=== PATIENT | female | born 1965 | race Caucasian/White ===

== ENCOUNTER 2019-11-23 09:38 | Outpatient (CLI) | payer BC, SELFPAY ==
--- NOTE | 2019-11-23 10:00 | XR_ITS ---
WS: [id number] HIP WITH PELVIS RIGHT TECHNIQUE: 3 views of the right hip with pelvis CLINICAL INFORMATION: DEGENERATIVE JOINT DISEASE COMPARISON: July 01, 2016 FINDINGS: Dysplastic right hip with advanced degenerative changes. 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 Loss of joint space and [id number] articulation superolate ral joint compartment. Marginal osteophytes. Proximal femoral shaft appears normal. No acute fracture s. XR/XR hip RT 2-3V wo/w pel* [id number] IMPRESSION: Right hip dysplasia with advanced degenerative narrowing.
== END 2019-11-23 09:39 | disposition home or self-care (01) ==
LOC: RADWPI 09:42
PROVIDERS: Family Provider Family Medicine; PCP Electrodiagnostic Medicine; Visit Provider Electrodiagnostic Medicine
DX: M16.11 Unilateral primary osteoarthritis, right hip (principal); Q65.89 Other specified congenital deformities of hip
CPT/HCPCS: 73502

== ENCOUNTER 2020-07-31 05:14 | Emergency (ER) | payer BC, SELFPAY ==
[2020-07-31 05:15] VITALS: BP 189/87; PULSE 88; RESP 16; TEMP 36.6; O2SAT 100; BMI 24.3
--- NOTE | 2020-07-31 05:19 | CTR_ITS ---
PROCEDURE INFORMATION: Exam: CT Head Without Contrast Exam date and time: 07/31/2020 5:23 AM Age: 54 years old Clinical indication: Other: Tingling all over; Additional info: Paresthesia TECHNIQUE: Imaging protocol: Computed tomography of the head without contrast. Radiation optimization: All CT scans at this facility use at least one of these dose optimization techniques: automated exposure control; mA and/or kV adjustment per patient size (includes targeted exams where dose is matched to clinical indication); or iterative reconstruction. COMPARISON: No relevant prior studies available. RADIATION DOSE METRICS: Total DLP (mGy-cm): 774.18 FINDINGS: Brain: Oblique orientation of the flat focus of CSF density measuring about 3 x 6 mm along the posteroinferior margin of the right basal ganglia suggesting a possible incidental small arachnoid cyst in the choroidal fissure. No edema in the brain. Unremarkable white matter. No hemorrhage. Cerebral ventricles: No ventriculomegaly. Bones/joints: Unremarkable. No acute fracture. Paranasal sinuses: Visualized sinuses unremarkable. No fluid levels. Mastoid air cells: Visualized mastoid air cells unremarkable. Soft tissues: Unremarkable. CT/CT head wo con* [id number] IMPRESSION: No acute finding. Radiation Dose CTDIVOL = (mGy): DLP = 774.18 (mGy-cm)
--- NOTE | 2020-07-31 05:19 | XRR_ITS ---
PROCEDURE INFORMATION: Exam: XR Chest, 1 View Exam date and time: 07/31/2020 5:38 AM Age: 54 years old Clinical indication: Chest pain; Type not specified; Additional info: Cp, tingling all over TECHNIQUE: Imaging protocol: XR of the chest Views: 1 view. COMPARISON: No relevant prior studies available. FINDINGS: Lungs: Unremarkable. No consolidation. Pleural space: Unremarkable. No pleural effusion. No pneumothorax. Heart/Mediastinum: Unremarkable. No cardiomegaly. Bones/joints: Unremarkable. XR/XR chest 1V portable [id number] IMPRESSION: No acute findings.
--- NOTE | 2020-07-31 05:32 | ED_ITS ---
HPI - Neuro Symptoms/Deficit General: Chief Complaint: Neuro Symptoms/Deficit Stated Complaint: tingling all over Time Seen by Provider: 07/31/20 05:19 History of Present Illness: HPI Narrative: 54 yo female presents to the ER with complaints of numbness and tingling in the R leg. She thought she was having a panic attack and tool a xanax with no change in symptoms. She has not had any slurred speech or facial droop and R leg extremity weakness. She denies any chest pain. She had no cough, fever sweats, chills, or flu like symptoms. No diarrhea. She denies any headache or any other neurosymtpoms. Onset (ago): minute(s) Time: 05:15 Last Observed Normal: 04:55 Location: left leg History of same: No Severity: mild Quality: tingling Relieving factors: none Exacerbating factors: none Context: sudden onset Associated symptoms: Deny chest pain, cough, diaphoresis, fevers/chills, headache(s), anorexia, malaise, nausea, seizures, short of breath, syncope, tingling, vertigo, vomiting or weakness Treatments Prior to Arrival: none Review of Systems Const: Denies: malaise or diaphoresis ENMT: Denies: throat pain, ear or mastoid pain, nasal discharge or nasal congestion Card: Denies: chest pain or syncope Resp: Denies: dyspnea, productive cough or non-productive cough GI: Denies: nausea or vomiting : Denies: flank pain, difficulty voiding, dysuria, urinary frequency or urinary urgency Skin/Breast: Denies: rash or pruritus Neuro: Denies: headache(s) or vertigo [facility] ED PFSH: Medical History (Updated 07/31/20 @ 06:28 by Frank Barker DO) Anxiety NIH stroke score NIHSS: Level Of Consciousness - 1a: 0 Level Of Consciousness Questions - 1b: Both Correct Level Of Consciousness Commands - 1c: Both Correct Best Gaze - 2: Normal Visual Marshall - 3: No Visual Loss Facial Palsy - 4: Normal Motor Arm Right - 5: No Drift Motor Arm Left - 5: No Drift Motor Leg Right - 6: No Drift Motor Leg Left - 6: No Drift Limb Ataxia - 7: Absent Sensory - 8: Normal Best Language - 9: No Aphasia Dysarthia - 10: Normal Extinction And Inattention - 11: 0 Score: Total Score: 0 Physical Exam Const: COMMON NORMALS: no acute distress GENERAL APPEARANCE: cooperative and comfortable ORIENTATION/CONSCIOUSNESS: Yes awake, Yes oriented to person, Yes oriented to place and Yes oriented to time HENMT: COMMON NORMALS: normocephalic, atraumatic and hearing grossly normal bilaterally HEAD & SCALP: normocephalic and atraumatic Neck/C-Spine: COMMON NORMALS: no JVD Resp: COMMON NORMALS: normal respiratory effort, No retractions, No use of accessory muscles and clear to auscultation bilaterally AUSCULTATION: clear to auscultation bilaterally Cardio: COMMON NORMALS: no JVD, regular rate, regular rhythm and No murmurs present (Cardio) RATE: regular rate RHYTHM: regular rhythm GI: COMMON NORMALS: Soft to palpation and No hepatosplenomegaly present AUSCULTATION: Yes normoactive bowel sounds PALPATION: Yes Soft to palpation, No Tenderness to palpation present (GI), No Guarding due to palpation present (GI) and Yes No hepatosplenomegaly present Extremity: COMMON NORMALS: normal to inspection, capillary refill normal, no clubbing, cyanosis or edema, no calf tenderness and no pedal edema Neuro: SENSORIUM/ORIENTATION: Yes oriented to person, Yes oriented to place and Yes oriented to time Skin: COMMON NORMALS: no rashes or lesions noted GENERAL SKIN EXAM: no rashes or lesions noted Course Vital Signs: Vital signs: Vital Signs Temperature 97.8 F 07/31/20 05:15 Pulse Rate 88 07/31/20 05:15 Respiratory Rate 16 07/31/20 05:15 Blood Pressure 189/87 07/31/20 05:15 Pulse Oximetry 100 07/31/20 05:15 MDM - Neuro Symptoms/Deficit MDM Narrative: Medical decision making narrative: Patient initially seen by Dr. Young, when I seen the patient and her stroke score was 0. Her main complaint seems to be numbness and tingling bilaterally in her hands although I cannot really get her to localizes in like a dermatomal pattern necessarily. Did examine her with Tinel's and Phalen's at the bedside no evidence really of carpal tunnel like syndrome. She does complain of frequent neck pain central disc herniation could be a cause although she does not have significant pain in the neck or arms at this time. We will have her take a baby aspirin daily set h er up for further testing as an outpatient. Have her follow-up with Dr. Hernandez when those are completed. Lab Data: Labs: Lab Results 07/31/20 07/31/20 07/31/20 Range/Units 05:20 05:20 05:20 WBC 7.3 (4.0-10.0) 10^3/ uL RBC 4.46 (4.1-5.3) 10^6/u L Hgb 13.4 (11.5-15.3) g/dL Hct 40.3 (37.0-47.0) % MCV 90.4 (81-99) fL MCH 30.0 (28.0-34.0) pg MCHC 33.3 (30.0-36.0) g/dL RDW 12.8 (12.1-15.1) % Plt Count 263 (130-400) 10^3/c mm MPV 9.3 (7.4-10.4) fL Neut % (Auto) 35.6 % Lymph % (Auto) 48.1 % Greenlee % (Auto) 8.2 % Eos % (Auto) 6.6 % Baso % (Auto) 1.4 % Neut # (Auto) 2.59 (1.8-7.7) 10^3/u L Lymph # (Auto) 3.5 (0.8-4.8) 10^3/u L Greenlee # (Auto) 0.6 (0.2-0.9) 10^3/u L Eos # (Auto) 0.5 (0.0-0.8) 10^3/u L Baso # (Auto) 0.1 (0.0-0.1) 10^3/u L Nucleated RBC % (a uto) 0 % Nucleated RBCs # 0.0 /100WBC PT 12.40 (12.1-14.9) SECO NDS INR 0.90 (0.8-1.2) Sodium 139 (136-145) mmol/L Potassium 3.3 L (3.5-5.1) mmol/L Chloride 97 L (98-107) mmol/L Carbon Dioxide 29 (22-29) mmol/L Anion Gap 16.3 (5-19) BUN 14 (6-20) mg/dL Creatinine 0.6 (0.5-0.9) mg/dL GFR Calculation 105.0 (90-130) mL/min Glucose 119 H (65-115) mg/dL Calculated Osmolal ity 290 (285-295) mOsm/k g Calcium 10.1 (8.5-10.5) mg/dL Total Bilirubin 0.2 (0.15-1.2) mg/dL AST 22 (0-32) U/L ALT 19 (0-33) U/L Alkaline Phosphata se 44 (35-105) IU/L Total Protein 7.9 (6.6-8.7) g/dL Albumin 5.1 (3.5-5.2) g/dL Globulin 2.8 (1.3-4.6) g/dL Discharge Plan Discharge Patient Disposition: Home Clinical Impression: Transient cerebral ischemia, Anxiety, Peripheral neuropathy, Hypokalemia Condition: Stable Prescriptions: New aspirin 81 mg tablet,chewable 81 mg PO DAILY Qty: 30 RF: 0 Discharge Orders: Discharge Order (Routine); Ordered 07/31/20 Ordered By: Frank Barker Referrals: Latrice Govea DO [Family Provider] - Discharge Diet: Usual diet Discharge Activity: Increase activity as tolerated Activity Restrictions/Additional Instructions: Baby aspirin daily. Case management will arrange for further testing as an outpatient. Follow-up with Dr. Govea and these are completed. Coding Level of Care Code ED Chief Librarian Extension Department for [place] Fwd Exam Comprehensive
[2020-07-31 05:34] LABS: Basophils # 0.1 10^3/uL (0.0-0.1); Basophils % 1.4 %; Eosinophils # 0.5 10^3/uL (0.0-0.8); Eosinophils % 6.6 %; Hematocrit 40.3 % (37.0-47.0); Hemoglobin 13.4 g/dL (11.5-15.3); Lymphocytes # 3.5 10^3/uL (0.8-4.8); Lymphocytes % 48.1 %; Mean Corpuscular HGB Conc 33.3 g/dL (30.0-36.0); Mean Corpuscular Volume 90.4 fL (81-99); Mean Platelet Volume 9.3 fL (7.4-10.4); Monocytes # 0.6 10^3/uL (0.2-0.9); Monocytes % 8.2 %; Neutrophils # 2.59 10^3/uL (1.8-7.7); Neutrophils % 35.6 %; Nucleated Red Blood Cells % 0 %; Platelet Count 263 10^3/cmm (130-400); Red Blood Count 4.46 10^6/uL (4.1-5.3); Red Cell Distribution Width 12.8 % (12.1-15.1); White Blood Count 7.3 10^3/uL (4.0-10.0)
[2020-07-31] MEDS: LORazepam 2 mg/mL INJ 1 mL 1 MG IVP (05:39)
[2020-07-31] MEDS: sodium chloride 0.9% 1,000 ML 999 ML IV (05:40)
[2020-07-31 05:52] LABS: Alanine Aminotransferase 19 U/L (0-33); Albumin Level 5.1 g/dL (3.5-5.2); Alkaline Phosphatase 44 IU/L (35-105); Anion Gap 16.3 (5-19); Aspartate Amino Transferase 22 U/L (0-32); Blood Urea Nitrogen 14 mg/dL (6-20); Calcium 10.1 mg/dL (8.5-10.5); Carbon Dioxide 29 mmol/L (22-29); Chloride 97 mmol/L (98-107); Globulin 2.8 g/dL (1.3-4.6); Glucose 119 mg/dL (65-115); Osmolality Calculated 290 mOsm/kg (285-295); Potassium 3.3 mmol/L (3.5-5.1); Sodium 139 mmol/L (136-145); Total Bilirubin 0.2 mg/dL (0.15-1.2); Total Protein 7.9 g/dL (6.6-8.7)
--- NOTE | 2020-07-31 06:15 | ECG_ITS ---
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 Measurements Intervals [place] Rate: 75 P: 67 NV: 164 QRS: 57 QRSD: 102 T: 13 QT: 390 QTc: 437 Interpretive Statements SINUS RHYTHM WITH SINUS ARRHYTHMIA POSSIBLE LEFT ATRIAL ENLARGEMENT [-0.1mV P WAVE IN V1/V2] NONSPECIFIC ST & T-WAVE ABNORMALITY No previous ECG available for comparison Electronically Signed On 07-31-2020 16:32:38 CDT by Maria Eugenia Munoz M.D. [email or web address].InnoCentive/store/NU/[id number] f
[2020-07-31] MEDS: potassium chloride oral liq 20 mEq/15 mL UDC 40 MEQ PO (06:17)
[2020-07-31 06:46] VITALS: BP 132/74; PULSE 76; O2SAT 99
--- NOTE | 2020-07-31 14:53 | DCPLANNER ---
managed care manager had message to schedule several outpatient tests for patient, MRI of head, 24 hour halter monitor, echo cardiogram, and a carotid duplex. managed care manager faxed orders to centralized scheduling and to [facility]. managed care manager will call for appointment information.
--- NOTE | 2020-08-01 12:39 | DCPLANNER ---
Patient has a follow up appointment scheduled for Thursday, August 13, 2020 at 2:30. [facility] will call patient with appointment information.
--- NOTE | 2020-08-23 07:57 | DCPLANNER ---
Out patient tests have been cancelled due to insurance denial, centralized scheduling has tried to contact patient for updated insurance information and has been unable to reach patient. protection manager called [phone], unable to speak with patient at this time.
--- NOTE | 2020-10-12 12:11 | DCPLANNER ---
Patient had a follow up appointment scheduled for a 24 hour [facility] monitor - patient did attend the appointment.
== END 2020-07-31 06:48 | disposition home or self-care (01) ==
PROVIDERS: Emergency Medicine; Emergency Provider Family Medicine; Family Provider Family Medicine; PCP Electrodiagnostic Medicine
DX: G45.9 Transient cerebral ischemic attack, unspecified (principal); F41.9 Anxiety disorder, unspecified; E87.6 Hypokalemia; G62.9 Polyneuropathy, unspecified
CPT/HCPCS: 12345; 70450; 71045; 80053; 85025; 85610; 93005; 96361; 96374; 96375; 99283; J2060; J7030

== ENCOUNTER 2020-11-29 08:56 | Outpatient (CLI) | payer BC, SELFPAY ==
--- NOTE | 2020-11-29 09:01 | USCV_ITS ---
Nina Olivo Age: 55 Gender: F : 1965 Exam Date: 11/29/2020 09:20 Ordering Phys: Latrice Govea DO Technologist: Ghulam Barksdale Exam Location: [facility] [place]_ Indication: stroke like symptoms Risk Factors: Previous Vascular Surgery: Right Brachial BP: / Left Brachial BP: / Right Left Velocity (cm/s) Spectral Plaque Velocity (cm/s) Spectral Plaque Syst/Diast Broadening Syst/Diast Broadening 59.00/ 10.70 Prox CCA 84.10 / 21.00 82.70/ 18.70 Mid CCA 80.20 / 26.90 75.00/ 20.90 Distal CCA 69.70 / 24.30 72.80/ 26.50 Prox ICA 66.80 / 28.70 83.80/ 36.40 Mid ICA 99.40 / 39.60 74.90/ 31.70 Distal ICA 102.50/ 45.10 118.00 ECA 90.90 1.01 ICA/CCA 1.28 Antegrade Vertebral Antegrade 44.00/ 13.10 cm/s 66.80/ 17.90 cm/s Tri Subclavian Tri 85.40 80.80 FINDINGS Comparison: none available. No significant elevation of systolic or diastolic velocities. Waveforms are normal. No significant amount of calcified plaque or intimal thickening identified. CONCLUSIONS Normal carotid doppler ultrasound. Dr. Suzanne Manriquez DO (Electronically Signed) Final Date: 29 November 2020 09:47 S
== END 2020-11-29 08:57 | disposition home or self-care (01) ==
LOC: RAD 09:00
PROVIDERS: PCP Electrodiagnostic Medicine; Visit Provider Family Medicine
DX: R29.90 Unspecified symptoms and signs involving the nervous system (principal)
CPT/HCPCS: 93880

== ENCOUNTER 2021-02-28 14:20 | Outpatient (CLI) | payer BC, SELFPAY ==
--- NOTE | 2021-02-28 14:25 | MM_ITS ---
WS: [id number] BILATERAL DIGITAL SCREENING MAMMOGRAPHY WITH CAD CLINICAL INFORMATION: SCREENING HISTORY: Screening mammogram. No current complaints. COMPARISON: TECHNIQUE: Bilateral CC and MLO views. FINDINGS: The breasts are composed of heterogeneous fibroglandular density tissue, which can limit the detectio n of small underlying mass lesions. No suspicious mass, asymmetry, calcifications, or architectural d istortion. No evidence of malignancy. A few punctate calcifications. MM/[place] [id number] IMPRESSION: BI-RADS: 2-Benign FOLLOW UP: 1 Year Follow-up Recommend return to annual screening mammography.
== END 2021-02-28 14:21 | disposition home or self-care (01) ==
LOC: RADSHAW 14:23
PROVIDERS: PCP Family Medicine; Visit Provider Obstetrics & Gynecology
DX: Z12.31 Encounter for screening mammogram for malignant neoplasm of breast (principal)
CPT/HCPCS: 77067

== ENCOUNTER 2022-04-10 08:14 | Outpatient (CLI) | payer OTHER, SELFPAY ==
--- NOTE | 2022-04-10 08:33 | MM_ITS ---
WS: [id number] BILATERAL SCREENING DIGITAL BREAST TOMOSYNTHESIS MAMMOGRAM WITH CAD HISTORY: SCREENING COMPARISON: 04/12/2014, 06/14/2015, 02/28/2021, 10/13/2017 Bilateral CC and MLO views with tomosynthesis and synthetic mammography submitted. Computer aided det ection analyzed. Breast composition: The breasts are heterogeneously dense, which may obscure small masses. No suspici ous masses, microcalcifications or architectural distortion. There is a focal asymmetry noted in the central RIGHT breast seen best on the CC projection that has been noted intermittently since 2013. No significant increase in size. MM/[place] [id number] IMPRESSION: BI-RADS: 2-Benign FOLLOW UP: 1 Year Follow-up
== END 2022-04-10 08:15 | disposition home or self-care (01) ==
PROVIDERS: PCP Family Medicine; Visit Provider Family Medicine
DX: Z12.31 Encounter for screening mammogram for malignant neoplasm of breast (principal)
CPT/HCPCS: 77063; 77067

== ENCOUNTER 2023-07-03 08:03 | Outpatient (CLI) | payer OTHER, SELFPAY ==
--- NOTE | 2023-07-03 08:15 | MM_ITS ---
WS: [id number] BILATERAL SCREENING DIGITAL TOMOSYNTHESIS MAMMOGRAM WITH CAD HISTORY: SCREENING COMPARISON: 04/10/2022 and 02/28/2021 Bilateral CC and MLO views with tomosynthesis and synthetic mammography submitted. Computer aided det ection analyzed. Breast composition: The breasts are heterogeneously dense, which may obscure small masses. No suspici ous masses, microcalcifications or architectural distortion. IMPRESSION: MM/[place] [id number] BI-RADS: 1-Negative FOLLOW UP: 1 Year Follow-up
== END 2023-07-03 08:04 | disposition home or self-care (01) ==
PROVIDERS: PCP Family Medicine; Visit Provider Family Medicine
DX: Z12.31 Encounter for screening mammogram for malignant neoplasm of breast (principal)
CPT/HCPCS: 77063; 77067

== ENCOUNTER → 2024-04-20 09:06 | Outpatient (BNVA) | payer BC, SELFPAY | PROVIDERS: PCP Family Medicine; Referring Provider Nurse Practitioner Family; Visit Provider Nurse Practitioner | DX: S52.124A Nondisplaced fracture of head of right radius, initial encounter for closed fracture; W01.0XXA Fall on same level from slipping, tripping and stumbling without subsequent striking against object, initial encounter | CPT/HCPCS: 73080 ==

== ENCOUNTER 2024-04-20 12:45 | Outpatient (CLI) | payer BC, SELFPAY | END 2024-04-20 12:46 | disposition home or self-care (01) | LOC: SPT 12:45 | PROVIDERS: PCP Family Medicine; Visit Provider Nurse Practitioner | DX: Z46.89 Encounter for fitting and adjustment of other specified devices (principal); M25.521 Pain in right elbow | CPT/HCPCS: 97760; L3761 ==

== ENCOUNTER → 2024-05-13 08:26 | Outpatient (BNVA) | payer BC, SELFPAY | PROVIDERS: PCP Family Medicine; Visit Provider Nurse Practitioner | DX: S52.124A Nondisplaced fracture of head of right radius, initial encounter for closed fracture (principal); X58.XXXA Exposure to other specified factors, initial encounter | CPT/HCPCS: 73080 ==

== ENCOUNTER → 2024-06-03 09:27 | Outpatient (BNVA) | payer BC, SELFPAY | PROVIDERS: PCP Family Medicine; Visit Provider Nurse Practitioner | DX: S52.124D Nondisplaced fracture of head of right radius, subsequent encounter for closed fracture with routine healing (principal); W01.0XXD Fall on same level from slipping, tripping and stumbling without subsequent striking against object, subsequent encounter | CPT/HCPCS: 73080 ==

== ENCOUNTER → 2024-07-06 13:43 | Outpatient (BNVA) | payer BC, SELFPAY | PROVIDERS: PCP Family Medicine; Visit Provider Nurse Practitioner | DX: S52.124D Nondisplaced fracture of head of right radius, subsequent encounter for closed fracture with routine healing (principal); X58.XXXD Exposure to other specified factors, subsequent encounter | CPT/HCPCS: 73080 ==

== ENCOUNTER 2024-12-30 10:21 | Outpatient (CLI) | payer BC, SELFPAY ==
--- NOTE | 2024-12-30 10:33 | MM_ITS ---
WS: [id number] BILATERAL 3D TOMOSYNTHESIS DIGITAL SCREENING MAMMOGRAPHY WITH CAD CLINICAL INFORMATION: SCREENING HISTORY: Screening mammogram. No current complaints. COMPARISON: 2022 TECHNIQUE: Bilateral CC and MLO views. FINDINGS: The breasts are composed of heterogeneous fibroglandular density tissue, which can limit the detection of small underlying mass lesions. No suspicious mass, asymmetry, calcifications, or architectural distortion. No evidence of malignancy. MM/MM scr tomosynthesis [id number] IMPRESSION: DENSITY: The breasts are heterogeneously dense, which may obscure small masses. BI-RADS: 1 - Negative FOLLOW UP: 1 Year Follow-up Recommend return to annual screening mammography.
== END 2024-12-30 10:22 | disposition home or self-care (01) ==
LOC: RAD 10:23
PROVIDERS: PCP Family Medicine; Visit Provider Family Medicine
DX: Z12.31 Encounter for screening mammogram for malignant neoplasm of breast (principal); R92.333 Mammographic heterogeneous density, bilateral breasts
CPT/HCPCS: 77063; 77067